=== PATIENT | female | born 1985 | race Caucasian/White ===

== ENCOUNTER 2017-07-09 22:09 | Emergency (ER) | payer MEDICAID ==
[~2017-07-09] VITALS: Ht 160 cm; Wt 57.8 kg
[~2017-07-09 22:09] MED LIST: METF500T4 PO
[2017-07-09 22:21] VITALS: Ht 160 cm; Wt 57.8 kg
[2017-07-10] MEDS ORDERED: METOCLOPRAMIDE 10 MG INJ IV STA (00:44)
[2017-07-10] MEDS ORDERED: SOD CHLORIDE 0.9% 1,000 ML IV STA (00:44)
[2017-07-10 01:46] LABS: BASOPHILS % 0.4 % (0.0-2.0); EOSINOPHILS # 0.1 10^3/ul (0.0-0.5); EOSINOPHILS % 0.7 % (0.0-7.0); HEMATOCRIT 39.1 % (37.0-47.0); HEMOGLOBIN 13.1 g/dl (12.0-16.0); LYMPHOCYTES # 2.7 10^3/ul (0.8-2.9); LYMPHOCYTES % 36.1 % (15.0-51.0); MEAN CORPUSCULAR HEMOGLOBIN 26.7 pg (29.0-33.0); MEAN CORPUSCULAR HGB CONC 33.5 g/dl (32.0-37.0); MEAN CORPUSCULAR VOLUME 79.8 fl (82.0-101.0); MEAN PLATELET VOLUME 10.1 fl (7.4-10.4); MONOCYTE # 0.5 10^3/ul (0.3-0.9); MONOCYTES % 6.3 % (0.0-11.0); NEUTROPHIL # 4.2 10^3/ul (1.6-7.5); NEUTROPHILS % 56.1 % (39.0-77.0); PLATELET COUNT 330 10^3/UL (140-415); RED CELL DISTRIBUTION WIDTH 12.9 % (11.5-14.5); WHITE BLOOD COUNT 7.4 10^3/ul (4.8-10.8)
[2017-07-10 01:57] LABS: ADD UMIC NO; UR ASCORBIC ACID NEGATIVE (NEGATIVE); UR BILIRUBIN (Dip) NEGATIVE (NEGATIVE); UR BLOOD (Dip) NEGATIVE (NEGATIVE); UR CLARITY CLEAR (CLEAR); UR COLOR YELLOW (YELLOW); UR GLUCOSE (Dip) 3+ mg/dL (NEGATIVE); UR KETONES (Dip) NEGATIVE (NEGATIVE); UR LEUKOCYTE ESTERASE (Dip) NEGATIVE Leu/ul (NEGATIVE); UR NITRITE (Dip) NEGATIVE (NEGATIVE); UR SPECIFIC GRAVITY (Dip) 1.017 (1.003-1.030); UR TOTAL PROTEIN (Dip) NEGATIVE (NEGATIVE); UR UROBILINOGEN (Dip) NEGATIVE (NEGATIVE)
[2017-07-10 02:04] LABS: ALBUMIN 4.4 g/dl (3.3-4.9); ALBUMIN/GLOBULIN RATIO 1.15; BILIRUBIN,INDIRECT 0.4 mg/dl (0-1.1); BILIRUBIN,TOTAL 0.4 mg/dl (0.2-1.3); CALCIUM 9.5 mg/dl (8.4-10.2); CREATININE 0.5 mg/dl (0.44-1.00); POTASSIUM 3.9 mmol/L (3.5-5.1); TOTAL PROTEIN 8.2 g/dl (6.1-8.1)
--- NOTE | 2017-07-10 02:22 | RADRPT ---
PROCEDURE: US Abdomen (right upper quadrant). CLINICAL INDICATION: Right upper quadrant pain TECHNIQUE: Multiple real-time longitudinal and transverse images of the right upper quadrant of th e abdomen were acquired utilizing a curved array transducer. Images were reviewed on a high-resoluti on PACS workstation. COMPARISON: None FINDINGS: The liver is enlarged, measuring 17.8 cm. The liver is mildly increased in echogenicity without foca l mass or intrahepatic biliary dilatation. There is normal hepatopedal flow within the main portal vein. The gallbladder is distended. There is a gallstone. No gallbladder wall thickening or perich olecystic fluid is seen. No intra or extrahepatic biliary dilatation is visualized. The common bile duct measures 2.4 mm in maximal dimension. The visualized portions of the pancreas are unremarkabl e with obscuration of the tail of the pancreas. No free fluid is identified. The right kidney measures 10.7 cm in length. There is normal echogenicity within the right kidney. There is no perinephric fluid collection. No hydronephrosis, mass, or calculus is seen. IMPRESSION: 1. Cholelithiasis without evidence of acute cholecystitis. 2. Enlarged, mild fatty liver. RPTAT: HCNS Physician Jennifer Date Time Electronically viewed and signed by Physician Jennifer on 07/10/2017 02:21 /
--- NOTE | 2017-07-10 02:27 | RADRPT ---
PROCEDURE: US OB. CLINICAL INDICATION: pelvic pain . LMP 03/25/2017 TECHNIQUE: Multiple sonographic images of the pelvis were obtained. The images were reviewed on a PACS workstation. COMPARISON: No prior studies are available for comparison. FINDINGS: There is a single viable intrauterine gestation. Cardiac activity is present with 156 beats per min lina. Measurements were made in order to determine age. The results are as follows: BPD =2.29 cm HC =8.64 cm AC =6.66 cm FL =0.99 cm. Estimated gestational age of approximately 13 weeks, 4 days.. The gestational age by LMP is 15 week s, 2 days. The estimated date of delivery is 01/11/2018. The EFW = 71.42 g +/-10.71 g . The placenta is anterior. There is no evidence for an abruption or placenta previa. There is a normal amount of amniotic fluid. IMPRESSION: Single viable intrauterine gestation of approximately 13 weeks, 4 days. The estimated date of delive ry is 01/11/2018. Anterior placenta. Physician Jennifer Date Time Electronically viewed and signed by Physician Jennifer on 07/10/2017 02:26 CS/
[2017-07-10] MEDS ORDERED: CIPR500T4 PO (03:01)
[2017-07-10] MEDS ORDERED: IBUP-1542 PO (03:01)
[2017-07-10] MEDS ORDERED: HYDR-906 PO (03:01)
[2017-07-10] MEDS ORDERED: TAMS-14 PO (03:02)
[2017-07-10] MEDS ORDERED: METO10TA92 PO (03:08)
[2017-07-10] MEDS ORDERED: ACET500C5 PO (03:10)
[2017-07-10 03:15] VITALS: BP 105/61; PULSE 87; RESP 16; TEMP 98.3
--- NOTE | 2017-07-10 04:41 | ERD ---
ER Documentation Chief Complaint Chief Complaint 14 weeks preg unable to hold down fluids HPI Patient is a 32-year-old female, approximately 14 weeks , past medical history of diabetes who presents to the ED for concerns of nausea and vomiting. Patient states she has had nausea and vomiting for the last 3 months. Patient states today she was unable to tolerate any p.o. fluids and thus she came into the ED. Patient denies taking any antiemetics. Patient reports feeling tired and weak. Patient denies any fevers or chills. Patient denies any cough, rhinorrhea, sore throat. Patient does admit to pelvic pain. Patient denies any vaginal bleeding or excessive vaginal discharge. Patient states she has seen her SWITCH OPERATOR who submitted a referral for the patient to see high risk case manager/GYN for her diabetes however she is not seen this provider yet. Patient does not recall the name of her SWITCH OPERATOR. Patient states her last menstrual period was at the end of February. ROS All systems reviewed and are negative except as per history of present illness. Medications Home Meds Active Scripts Acetaminophen* (Tylophen*) 500 Mg Capsule, 1 CAP PO Q6H Y for PAIN AND OR ELEVATED TEMP, #20 CAP Prov:CATIA HA PA-C 07/10/17 Metoclopramide* (Reglan*) 10 Mg Tablet, 10 MG PO Q6 Y for NAUSEA AND/OR VOMITING , #10 TAB Prov:CATIA HA PA-C 07/10/17 Reported Medications Metformin* (Glucophage*) 500 Mg Tab, 500 MG PO DAILY, TAB 05/17/14 Discontinued Scripts Tamsulosin Hcl* (Flomax*) 0.4 Mg Cap.er.24h, 0.4 MG PO BID, #20 CAP Prov:CATIA HA PA-C 07/10/17 Ciprofloxacin Hcl* (Ciprofloxacin Hcl*) 500 Mg Tablet, 500 MG PO BID for 7 Days , TAB Prov:CATIA HA PA-C 07/10/17 Ibuprofen* (Motrin*) 600 Mg Tab, 400 MG PO Q6, #20 TAB Prov:CATIA HA PA-C 07/10/17 Hydrocodone/Acetaminophen ([place] 5-325 Tablet) 1 Each Tablet, 1 TAB PO Q6H Y for PAIN, #7 TAB Prov:CATIA HA PA-C 07/10/17 Allergies Allergies: Coded Allergies: No Known Allergies (Verified Allergy, Mild, 07/10/17) PMhx/Soc Medical and Surgical Hx: pt denies Medical Hx, pt denies Surgical Hx History of Surgery: No Anesthesia Reaction: No Hx Neurological Disorder: No Hx Respiratory Disorders: No Hx Cardiac Disorders: No Hx Psychiatric Problems: No Hx Miscellaneous Medical Probl: Yes (DM 2, gastritis) Hx Alcohol Use: No Hx Substance Use: No Hx Tobacco Use: No Smoking Status: Never smoker Physical Exam Vitals Vital Signs Date Time Temp Pulse Resp B/P Pulse Ox O2 Delivery O2 Flow Rate FiO2 07/10/17 03:15 98.3 87 16 105/61 98 Room Air 07/09/17 22:21 98.4 97 16 113/70 99 Physical Exam GENERAL: Well-developed, well-nourished female.. Appears in no acute distress. HEAD: Normocephalic, atraumatic. EYES: Pupils are equally reactive bilaterally. EOMs grossly intact. No conjunctival erythema. ENT: Moist mucous membranes. No uvula deviation. No kissing tonsils. NECK: Supple. No meningismus. Normal range of motion of the neck. LUNG: Clear to auscultation bilaterally. No rhonchi, wheezing, rales or coarse breath sounds. HEART: Regular rate and rhythm. No murmurs, rubs or gallops. ABDOMEN: Soft and nondistended. Tender to palpation in the suprapubic region. Positive bowel sounds in all four quadrants. No rebound tenderness, no guarding. (-) McBurney's point tenderness. No CVA tenderness. EXTREMITIES: Equal pulses bilaterally. No peripheral clubbing, cyanosis or edema. No unilateral leg swelling. NEUROLOGIC: Alert and oriented. Moving all four extremities without any difficulty. Normal speech. Steady gait. SKIN: Normal color. Warm and dry. No rashes or lesions. Result Diagram: 07/10/175407/10/1754 Results 24 hrs Laboratory Tests Test 07/10/17 00:55 White Blood Count 7.410^3/ul Red Blood Count 4.9010^6/ul Hemoglobin 13.1g/dl Hematocrit 39.1% Mean Corpuscular Volume 79.8fl Mean Corpuscular Hemoglobin 26.7pg Mean Corpuscular Hemoglobin Concent 33.5g/dl Red Cell Distribution Width 12.9% Platelet Count 23196^3/UL Mean Platelet Volume 10.1fl Neutrophils % 56.1% Lymphocytes % 36.1% Monocytes % 6.3% Eosinophils % 0.7% Basophils % 0.4% Nucleated Red Blood Cells % 0.0/100WBC Neutrophils # 4.210^3/ul Lymphocytes # 2.710^3/ul Monocytes # 0.510^3/ul Eosinophils # 0.110^3/ul Basophils # 0.010^3/ul Nucleated Red Blood Cells # 0.010^3/ul Urine Color YELLOW Urine Clarity CLEAR Urine pH 6.0 Urine Specific Eas[place] 1.017 Urine Ketones NEGATIVEmg/dL Urine Nitrite NEGATIVEmg/dL Urine Bilirubin NEGATIVEmg/dL Urine Urobilinogen NEGATIVEmg/dL Urine Leukocyte Esterase NEGATIVELeu/ul Urine Hemoglobin NEGATIVEmg/dL Urine Glucose 3+mg/dL Urine Total Protein NEGATIVEmg/dl Sodium Level 140mmol/L Potassium Level 3.9mmol/L Chloride Level 101mmol/L Carbon Dioxide Level 25mmol/L Anion Gap 18 Blood Urea Nitrogen 9mg/dl Creatinine 0.50mg/dl Glucose Level 187mg/dl Calcium Level 9.5mg/dl Total Bilirubin 0.4mg/dl Direct Bilirubin 0.00mg/dl Indirect Bilirubin 0.4mg/dl Aspartate Amino Transf (AST/SGOT) 15IU/L Alanine Aminotransferase (ALT/SGPT) 28IU/L Alkaline Phosphatase 73IU/L Total Protein 8.2g/dl Albumin 4.4g/dl Globulin 3.80g/dl Albumin/Globulin Ratio 1.15 Lipase 129U/L Current Medications Medications (Trade) Dose Ordered Sig/Samir Route PRN Reason Start Time Stop Time Status Last Admin Dose Admin Sodium Chloride (NS) 1,000 ml @ 1,000 mls/hr Q1H STAT IV 07/10/17 00:44 07/10/17 01:43 DC 07/10/17 01:04 Metoclopramide HCl (Reglan) 10 mg ONCE STAT IV 07/10/17 00:44 07/10/17 00:45 DC 07/10/17 01:04 Procedures/MDM ED COURSE: The patient was stable throughout ED course. I kept the patient and/or family informed of laboratory and diagnostic imaging results throughout the ED course. DIAGNOSTIC IMAGING: Read by radiologist. Patient: BUD CULVER : 1985 Age: 32 Sex: F MR #: [id number] DOS: 07/10/1743 Ordering MD: CATIA HA PA-C Location: [facility] Room/Bed: PROCEDURE: US OB. CLINICAL INDICATION: pelvic pain . LMP 03/25/2017 TECHNIQUE: Multiple sonographic images of the pelvis were obtained. The images were reviewed on a PACS workstation. COMPARISON: No prior studies are available for comparison. FINDINGS: There is a single viable intrauterine gestation. Cardiac activity is present with 156 beats per minute. Measurements were made in order to determine age. The results are as follows: BPD = 2.29 cm HC = 8.64 cm AC = 6.66 cm FL = 0.99 cm. Estimated gestational age of approximately 13 weeks, 4 days.. The gestational age by LMP is 15 weeks, 2 days. The estimated date of delivery is 01/11/2018. The EFW = 71.42 g +/-10.71 g . The placenta is anterior. There is no evidence for an abruption or placenta previa. There is a normal amount of amniotic fluid. IMPRESSION: Single viable intrauterine gestation of approximately 13 weeks, 4 days. The estimated date of delivery is 01/11/2018. Anterior placenta. Physician Jennifer Date Time Electronically viewed and signed by Physician Jennifer on 07/10/2017 02: 26 CS/ CC: CATIA HA PA-C DIAGNOSTIC IMAGING REPORT Patient: BUD CULVER : 1985 Age: 32 Sex: F MR #: [id number] DOS: 07/10/1743 Ordering MD: CATIA HA PA-C Location: [facility] Room/Bed: PROCEDURE: US Abdomen (right upper quadrant). CLINICAL INDICATION: Right upper quadrant pain TECHNIQUE: Multiple real-time longitudinal and transverse images of the right upper quadrant of the abdomen were acquired utilizing a curved array transducer. Images were reviewed on a high-resolution PACS workstation. COMPARISON: None FINDINGS: The liver is enlarged, measuring 17.8 cm. The liver is mildly increased in echogenicity without focal mass or intrahepatic biliary dilatation. There is normal hepatopedal flow within the main portal vein. The gallbladder is distended. There is a gallstone. No gallbladder wall thickening or pericholecystic fluid is seen. No intra or extrahepatic biliary dilatation is visualized. The common bile duct measures 2.4 mm in maximal dimension. The visualized portions of the pancreas are unremarkable with obscuration of the tail of the pancreas. No free fluid is identified. The right kidney measures 10.7 cm in length. There is normal echogenicity within the right kidney. There is no perinephric fluid collection. No hydronephrosis, mass, or calculus is seen. IMPRESSION: 1. Cholelithiasis without evidence of acute cholecystitis. 2. Enlarged, mild fatty liver. RPTAT: HCNS Physician Jennifer Date Time Electronically viewed and signed by Physician Jennifer on 07/10/2017 02: 21 CS/ CC: CATIA HA PA-C MEDICATIONS GIVEN: IV Fluids, Reglan Patient tolerated medication well with no adverse reactions. Patient reported improvement in pain. MEDICAL DECISION MAKING: Patient is a 32-year-old female, approximately 14 weeks , past medical history of diabetes who presents to the ED for concerns of nausea and vomiting. Patient denied any vaginal bleeding or pelvic cramping. Vital signs were reviewed. Patient was afebrile. Patient was hemodynamically stable. CBC showed no evidence of systemic infection or severe anemia. CMP showed no evidence of electrolyte abnormalities, severe acidosis, alkalosis, renal failure, or liver disease.Patient was noted to have a glucose level 187. Lipase showed no evidence of acute pancreatitis. UA showed no evidence of acute infection or hematuria. 3+ blood was noted to be found in the urine. She was given IV fluids and Reglan. Gallbladder ultrasound showed cholelithiasis without evidence of acute cholecystitis. Enlarged mild fatty liver noted. Pelvic ultrasound showed viable gestation of approximately 13 weeks and 4 days. Patient reported significant improvement in symptoms after receiving this treatment. At this time , patient presentation is most consistent with nausea and vomiting during , hyperglycemia and cholelithiasis. Patient was advised that she is to follow-up with her SWITCH OPERATOR ZAID to obtain a referral to high-risk SWITCH OPERATOR within the next week. In addition, patient was advised to speak to her current SWITCH OPERATOR about starting her medication for her elevated blood sugar. I explained to the patient the importance of blood sugar control in . Patient understands. Low suspicion for hyperemesis gravidarum, cholecystitis, pancreatitis, acute abdomen, sepsis, ectopic , molar , spontaneous , placental abruption, eclampsia. PRESCRIPTIONS: Tylenol, Reglan DISCHARGE: At this time, patient is stable for discharge and outpatient management.Patient was given a copy of all imaging studies and blood work obtained today.I have instructed the patient to follow-up with her OBGYN in 1-2 days. I have instructed the patient to promptly return to the ER at any time for any new or worsening symptoms including increased pain, nausea, vomiting, continued bleeding, weakness, syncope or fever. The patient and/or family expressed understanding of and agreement with this plan. All questions were answered. Home care instructions were provided. Departure Diagnosis: Primary Impression: Vomiting Additional Impression: Cholelithiasis Cholelithiasis location: gallbladder Cholecystitis presence: without cholecystitis Biliary obstruction: without biliary obstruction Qualified Code : K80.20 - Calculus of gallbladder without cholecystitis without obstruction Condition: Stable Patient Instructions: , Established, Normal Symptoms, Abdominal Pain During , Suspected Gallstones Referrals: [facility] YOU HAVE RECEIVED A MEDICAL SCREENING EXAM AND THE RESULTS INDICATE THAT YOU DO NOT HAVE A CONDITION THAT REQUIRES URGENT TREATMENT IN THE EMERGENCY DEPARTMENT. FURTHER EVALUATION AND TREATMENT OF YOUR CONDITION CAN WAIT UNTIL YOU ARE SEEN IN YOUR DOCTORS OFFICE WITHIN THE NEXT 1-2 DAYS. IT IS YOUR RESPONSIBILITY TO MAKE AN APPOINTMENT FOR FOLOW-UP CARE. IF YOU HAVE A PRIMARY DOCTOR --you should call your primary doctor and schedule an appointment IF YOU DO NOT HAVE A PRIMARY DOCTOR YOU CAN CALL OUR PHYSICIAN REFERRAL HOTLINE AT IF YOU CAN NOT AFFORD TO SEE A PHYSICIAN YOU CAN CHOSE FROM THE FOLLOWING [facility] [address] [facility] [address] [facility] [address] [facility] [address] [facility] [phone] [address] [facility]. [facility] [address] [facility]. [facility] YOU HAVE RECEIVED A MEDICAL SCREENING EXAM AND THE RESULTS INDICATE THAT YOU DO NOT HAVE A CONDITION THAT REQUIRES URGENT TREATMENT IN THE EMERGENCY DEPARTMENT. FURTHER EVALUATION AND TREATMENT OF YOUR CONDITION CAN WAIT UNTIL YOU ARE SEEN IN YOUR DOCTORS OFFICE WITHIN THE NEXT 1-2 DAYS. IT IS YOUR RESPONSIBILITY TO MAKE AN APPOINTMENT FOR FOLOW-UP CARE. IF YOU HAVE A PRIMARY DOCTOR --you should call your primary doctor and schedule and appointment IF YOU DO NOT HAVE A PRIMARY DOCTOR YOU CAN CALL OUR PHYSICIAN REFERRAL HOTLINE AT . IF YOU CAN NOT AFFORD TO SEE A PHYSICIAN YOU CAN CHOSE FROM THE FOLLOWING [facility] INSTITUTIONS: [facility] [address] [place] [address] [facility] [address] [place] [address] [facility] [address] [place] [address] SWITCH [place]PER[place] [address] [facility] [address] [place], [place] [phone] OFFICE FAX JESSICA SMITH [address] [place], [place] [phone] DR[address] GOMEZ SUPERIOR [address] [place], [place] [phone] DHEERAJ RODRÍGUEZ [address] [facility], [address] [address] [address] [address] [place], [place] [phone] [facility] [address] [place] [address] [address] [facility] [id number]RAL, [place] [address] [facility] [address] [address] ANDERS, [place] [address] [facility]. [address], [facility] [address] [address] CHOW, [place] [address] [place] [address] Additional Instructions: Call your primary care doctor TOMORROW for an appointment during the next 1-2 days.See the doctor sooner or return here if your condition worsens before your appointment time. Follow-up with her SWITCH OPERATOR in the next 1-2 days. Obtain referral for high risk OBGYN ZAID. Drink plenty of fluids. CATIA HA PA-C Jul 10, 2017 04:41
== END 2017-07-10 03:16 | disposition home or self-care (01) ==
LOC: FTE 22:09
DX: O21.9 Vomiting of pregnancy, unspecified (principal); O99.611 Diseases of the digestive system complicating pregnancy, first trimester; K80.20 Calculus of gallbladder without cholecystitis without obstruction; O24.111 Pre-existing type 2 diabetes mellitus, in pregnancy, first trimester; Z3A.13 13 weeks gestation of pregnancy; Z79.84 Long term (current) use of oral hypoglycemic drugs
CPT/HCPCS: 36415; 76705; 76805; 80053; 81003; 83690; 85025; 96374; J2765; J7030; Z7502

== ENCOUNTER 2017-11-08 18:54 | Outpatient (CLI) | END 2017-11-09 00:35 | disposition home or self-care (01) ==